=== PATIENT | male | born 1975 | race Caucasian/White ===

== ENCOUNTER 2016-10-06 12:49 | Emergency (ER) | payer OTHER ==
[~2016-10-06] VITALS: Ht 170.2 cm; Wt 88.5 kg
--- NOTE | 2016-10-06 13:05 | NUR ---
PATIENT BIB SELF, CC: HEADAHCE X 4 DAYS, NO TRAUMA, ABLE TO VERBALIZE NEEDS, WILL CONTINUE TO MONITOR CLOSELY, MD AT BEDSIDE UPON ARRIVAL, NO OTHER MEDICAL COMPLAINTS AT THIS TIME.
[2016-10-06] MEDS ORDERED: HYDROCODONE/APAP 10/325MG 1 EA TABLET PO ONE (13:30)
[2016-10-06] MEDS ORDERED: HYDROCODONE/APAP 10/325MG 1 EA TABLET ONE (13:38)
[2016-10-06 14:36] VITALS: BP 135/82
--- NOTE | 2016-10-06 14:36 | NUR ---
Patient discharged to home in stable condition. Written and verbal after care instructions given. Patient verbalizes understanding of instruction. NAD NOTED UPON DISCHARGE
== END 2016-10-06 14:36 | disposition home or self-care (01) ==
LOC: ER 12:51
DX: R51 Headache (principal); K21.9 Gastro-esophageal reflux disease without esophagitis; M10.9 Gout, unspecified; F17.210 Nicotine dependence, cigarettes, uncomplicated; Z90.89 Acquired absence of other organs; G47.30 Sleep apnea, unspecified
CPT/HCPCS: 70450; 99284; A4606; Z7610